=== PATIENT | male | born 1960 | race Caucasian/White ===

== ENCOUNTER 2019-01-02 11:54 | Emergency (ER) | payer MEDICAID ==
[~2019-01-02] VITALS: Ht 172.7 cm; Wt 69.0 kg
[2019-01-02 12:15] VITALS: BP 133/82
[2019-01-02] MEDS ORDERED: HYDR-4353 PO (13:04)
[2019-01-02] MEDS ORDERED: METH-360 PO (13:04)
[2019-01-02] MEDS ORDERED: orphenadrine citrate 60mg/2ml inj. IM ONE (13:05)
[2019-01-02] MEDS ORDERED: ketorolac tromethamine 15mg/ml inj. IM ONE (13:05)
== END 2019-01-02 13:32 | disposition home or self-care (01) ==
LOC: ER 11:55
DX: M50.021 Cervical disc disorder at C4-C5 level with myelopathy (principal); M50.022 Cervical disc disorder at C5-C6 level with myelopathy; M50.023 Cervical disc disorder at C6-C7 level with myelopathy; M51.84 Other intervertebral disc disorders, thoracic region; G89.29 Other chronic pain; Z88.8 Allergy status to other drugs, medicaments and biological substances; Z79.899 Other long term (current) drug therapy
CPT/HCPCS: 96372; 99283; J1885; J2360